=== PATIENT | female | born 1990 | race African-American/Black ===

== ENCOUNTER 2022-06-09 07:27 | Inpatient (IN) ==
[~2022-06-09 07:27] MED LIST: CITRIC ACID/SODIUM CITRATE 15 ML UDC PO SCH; LACTATED RINGER'S 1,000 ML IV SCH; ceFAZolin 3,000 MG in DEXTROSE 5% 50 ML IV SCH
[2022-06-09] MEDS ORDERED: LIDOCAINE 1% LOCAL 20 ML VIAL INFIL PRN (09:29)
[2022-06-09] MEDS ORDERED: OXYTOCIN 30 UNITS/500 ML BAG IV PRN (09:29)
[2022-06-09] MEDS ORDERED: MoRPHine SULFATE PF 1 MG/ML 10 ML AMP/VIAL ONE (09:37)
--- NOTE | 2022-06-09 09:42 | Anesthesiology Consultation ---
Date of Service June 09, 2022 Assessment & Plan (1) Encounter for pre-operative examination: Chart Review Chart Review: Acceptable Risk for Surgery History Surgery Operation Date: 06/09/22 09:20 Proposed Procedures p Section in LD - Tommy Jones MD Height/Weight Height: 5 ft 5 in Weight: 118.934 kg Allergies Allergy/AdvReac Type Severity Reaction Status Date / Time No Known Allergies Allergy Verified 06/06/22 13:33 Medications Home Medications Medication Instructions Recorded Confirmed Last Taken prenat.vits,светлана,zfl-djch-vffay 1 tab PO DAILY 11/12/21 06/06/22 Unknown ferrous sulfate PO 12/30/21 06/06/22 Unknown NPO Last Intake of Fluids Comment: Midnight Last Intake of Solids Comment: Midnight Past Medical History Medical History (Updated 06/09/22 @ 09:45 by Petey Juarez MD) Asthma As child Past Family History Family History Mother Breast cancer Grandfather (Maternal) Diabetes Past Surgical History Surgical History History of arthroscopy of right shoulder S/P appendectomy S/P tonsillectomy and adenoidectomy Status post left foot surgery Social History Smoking Status: Never smoker Hx Alcohol Use: No Physical Exam Vital Signs Last Vital Signs Temp 37.1 C 06/09/22 08:07 Pulse 99 H 06/09/22 07:34 Resp 22 06/09/22 08:07 BP 129/73 06/09/22 07:34
--- NOTE | 2022-06-09 09:51 | History & Physical Report ---
Date of Service June 09, 2022 Assessment & Plan (1) Supervision of normal intrauterine in primigravida: (2) Carrier of group B Streptococcus: (3) Breech presentation: Plan 32-year-old currently at 39 weeks 5 days gestational age presents for scheduled primary Caesarean section secondary to breech presentation. Reactive NST. Vitals within normal limits. consents reviewed and signed. Admission and Anticipated Discharge Date Admission Date: June 09, 2022 History of Present Illness Primary Care Provider: Kailee Berry MD 32-year-old G 0 currently 39 weeks 5 days gestational age presents for primary Caesarean section secondary to breech presentation. 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 GBS positive OB Labs: Blood Type A Positive 11/18/21 Antibody Screen NEGATIVE 11/18/21 Hemoglobin 10.5 g/dl (12.0-16.0) L 03/28/22 Hematocrit 31.9 % (34.1-44.9) L 03/28/22 Mean Corpuscular Volume 88.4 fL (80.0-100.0) 11/18/21 Platelet Count 338 K/uL (130-400) 11/18/21 Rubella IgG Antibody Immune (Immune) 11/18/21 Rapid Plasma Reagin Nonreactive (Nonreactive) 11/18/21 Hepatitis B Surface Antigen. NON-REACTIVE (NON-REACTIVE) 11/18/21 Hepatitis C Antibody (EIA) NON-REACTIVE (NON-REACTIVE) 11/18/21 HIV (1&2) Ag and Ab Confirmation NON-REACTIVE (NON-REACTIVE) 11/18/21 Glucose 1 Hour 50 gm Load 128 mg/dl (70-130) 03/28/22 OB Optional Labs: Chlamydia trachomatis RNA NOT DETECTED (NOT DETECTED) 11/18/21 Neisseria gonorrhoeae RNA NOT DETECTED (NOT DETECTED) 11/18/21 Labs Reviewed: cf neg-smp sma +, fob neg--smp declines cfDNA, quad, msafp --smp Allergies Allergy/AdvReac Type Severity Reaction Status Date / Time No Known Allergies Allergy Verified 06/06/22 13:33 Home Medications Medication Instructions Recorded Confirmed Type prenat.vits,светлана,vrf-agga-qxfrv 1 tab PO DAILY 11/12/21 06/06/22 History ferrous sulfate PO 10/10/22 03/17/23 History Patient History Medical History (Updated 06/09/22 @ 09:50 by Tommy Jones MD) Asthma As child Surgical History History of arthroscopy of right shoulder S/P appendectomy S/P tonsillectomy and adenoidectomy Status post left foot surgery Family History Mother Breast cancer Grandfather (Maternal) Diabetes Social History (Updated 11/12/21 @ 07:42 by Ghada Cordon) Smoking Status: Never smoker Hx Alcohol Use: No Preferred Language: Kazakh Child Custody Evaluator Required: No Beliefs That Will Affect Care: None marital status: marital status details: Spouse: Rk (31) [phone] Current Living Situation: Spouse Current Living Situation Comment: lives with spouse, step daughter, 3 dogs. current occupational status: employed current occupation: [employer]. Other Information That Helps Us Care for You: No Assistive Devices: None Physical Exam Gastrointestinal (Abdomen): Inspection/Auscultation: abdomen normal to inspection Percussion/Palpation: abdomen soft; abdomen nontender, no guarding and abdomen not rigid Genitourinary: OB Exam Abdomen: + breech ( confirmed by ultrasound) OB Exam Monitor Tracing: + external FHT monitor used, + external uterine monitor used, + category I and + normal FHT variability; no early decelerations present, no late decelerations present and no variable decelerations Results & Data Vital Signs (Past 12 Hours) Vital Signs Temp Pulse Resp BP 06/09/22 08:07 37.1 C 22 06/09/22 07:34 99 H 129/73 Code Status & VTE Plan VTE Prophylaxis Plan VTE Prophylaxis will be ordered: No Reason for no VTE drug order: Treatment not indicated Coding Level of Care Code None Diagnoses Supervision of normal intrauterine in primigravida Z34.00 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
[2022-06-09 10:01] LABS: Hematocrit (blood only) 33.6 % (37.0-47.0); Hemoglobin 11.3 g/dl (12.0-16.0); Mean Corpuscular Hemoglobin 29.6 pg (25.0-34.0); Mean Corpuscular Hgb Conc 33.6 g/dL (32.0-36.0); Platelet Count 252 K/uL (130-400); RDW Coefficient of Variation 14.3 % (11.5-14.5); RDW Standard Deviation 45.4 fL (36.4-46.3); Red Blood Count 3.82 M/uL (4.20-5.40); White Blood Count 13.62 K/ul (4.8-10.8)
[2022-06-09] MEDS ORDERED: ONDANSETRON INJ 2 MG/ML 2 ML VIAL IV PRN (10:53)
[2022-06-09] MEDS ORDERED: ePHEDrine sulfate 50 MG/ML AMP IV PRN (10:53)
[2022-06-09] MEDS ORDERED: MoRPHine SULFATE PF 1 MG/ML 10 ML AMP/VIAL INT SPINAL ONE (10:53)
[2022-06-09] MEDS ORDERED: NALBUPHINE HCL INJ 10 MG/ML AMP IV PRN (10:53)
[2022-06-09] MEDS ORDERED: PROMETHAZINE HCL 12.5 MG in SODIUM CHLORIDE 0.9% 50 ML IV PRN (10:53)
[2022-06-09] MEDS ORDERED: NALOXONE HCL 1 MG in SODIUM CHLORIDE 0.9% 1000ML 1,000 ML IV PRN (10:53)
[2022-06-09] MEDS ORDERED: diphenhydrAMINE 50 MG/ML VIAL IV PRN (10:53)
[2022-06-09] MEDS ORDERED: LACTATED RINGER'S 500 ML IV PRN (10:53)
[2022-06-09] MEDS ORDERED: NALOXONE HCL 0.08 MG in SYRINGE 1.8 ML IV PRN (10:53)
[2022-06-09] MEDS ORDERED: MoRPHine SULFATE 2 MG/ML CARP IV PRN (10:53)
[2022-06-09] MEDS ORDERED: NALOXONE HCL 0.4 MG/1 ML VIAL/CARP IV PRN (10:53)
[2022-06-09] MEDS ORDERED: SODIUM CHLORIDE 0.9% 1000ML 1,000 ML IV SCH (11:00)
[2022-06-09] MEDS ORDERED: NO NARCOTICS OR SEDATIVES SCH (11:00)
[2022-06-09] MEDS ORDERED: PHENYLEPHRINE 100MCG/ML 5ML SYR ONE (11:01)
[2022-06-09] MEDS ORDERED: METOCLOPRAMIDE HCL INJ 5 MG/ML 2 ML VIAL ONE (11:01)
[2022-06-09] MEDS ORDERED: ONDANSETRON INJ 2 MG/ML 2 ML VIAL ONE (11:01)
[2022-06-09] MEDS ORDERED: ePHEDrine sulfate 50 MG/ML SYR ONE (11:01)
[2022-06-09] MEDS ORDERED: OXYTOCIN 10 UNITS/ML 10ML VIAL ONE (11:01)
--- NOTE | 2022-06-09 12:02 | Post Operative Brief Note ---
PG Immediate Post Op with CF Date of Surgery June 09, 2022 Pre & Post Diagnosis Operation Date: 06/09/22 09:20 term . Breech presentation I identified the patient and participated in the time-out.: Yes Procedure Operation Date: 06/09/22 09:20 primary low transverse Surgeon Tommy Jones MD [place] [facility] Nursing Estimated Blood Loss 600 Findings Consistent with Post-Op Diagnosis
--- NOTE | 2022-06-09 12:46 | Operative Report (OR) ---
DATE OF SERVICE: 06/09/2022. PROCEDURE: Primary low transverse section. SURGEON: Tommy Jones MD. MULE DRIVER: Nursing staff. PREOPERATIVE DIAGNOSES: 1. Term at 39+ weeks gestational age. 2. Breech presentation. POSTOPERATIVE DIAGNOSES: 1. Term at 39+ weeks gestational age. 2. Breech presentation. 3. Status post procedure. ESTIMATED BLOOD LOSS: 600 mL. DRAINS: Cortez catheter. FLUIDS: Continuous lactated Ringer. URINE OUTPUT: Per Cortez catheter. COMPLICATIONS: None. FINDINGS: Viable female with weight pending and Apgars of 9 and 10 at 1 and 5 minutes respect ively. DESCRIPTION OF PROCEDURE: The patient was taken to the operating room after consents were ensured. Upon presentation, she was properly identified. Spinal anesthesia was obtained without difficulty. The patient was then prepped and draped in normal sterile fashion. Preprocedural timeout was perform ed, after which a Pfannenstiel incision was made with a knife. This was carried down to underlying f ascia with the Bovie. The fascia was then nicked at the midline and extended laterally in each direc tion with pickups and Burton scissors. Superior aspect of the fascia was grasped with Kochers x2, elev ated off the underlying rectus muscles using blunt dissection. The inferior aspect of the fascia was grasped with Kochers x2, elevated off the underlying rectus muscles using blunt dissection. Midline was then entered bluntly and placed on stretch to provide adequate room for delivery. A bladder donavon de was inserted and a bladder flap was created. A low transverse uterine incision was then made with a knife. The uterine cavity was then entered bluntly. It was noted to have clear fluid. The uteru s was placed on stretch to provide adequate room for delivery and the was noted to be in samina k breech presentation. The bottom was delivered through the hysterotomy to the level of the knees an d then each leg was internally rotated and brought through the hysterotomy, then this was continued i nto the level of the shoulder, but until just below the shoulder and each arm was delivered with inte rnal rotation for delivery. Head of the was then delivered without difficulty and was noted to be vigorous upon delivery and a 30+ seconds delayed cord clamping was initiated. Cord was then do uble clamped and cut. was taken to the waiting nursery staff. Cord blood was obtained. Att ention was then turned to delivery of the placenta, which was delivered intact, 3-vessel cord, gentle cord traction and uterine massage. Uterus was exteriorized. Several passes were made to remove any remaining membranes with a dry lap. The uterus was wrapped in a wet lap and the hysterotomy was yehuda pproximated with 0 Vicryl in a continuous running locked stitch. A second imbricating layer of 0 Jb ryl was performed and the hysterotomy was noted to be hemostatic. Posterior cul-de-sac was cleaned o f clots and debris. The uterus was returned to maternal abdomen and the hysterotomy was reinspected until noted to be hemostatic. Right and left pericolic gutters were cleaned of clots and debris. Th e space of Retzius, fascial and muscle layers were all inspected and noted to be hemostatic and was c leared of any clots and debris. The fascia was then reapproximated with 0 Vicryl in continuous runni ng stitch. The subcutaneous layers were reapproximated with 2-0 plain with continuous running stitch . The fascial layers were reapproximated with 3-0 Vicryl on a Brian needle in a subcuticular stitch, Dermabond placed on top. Needle, sponge, and instrument counts were correct at the completion of th e case. Both mother and stable in the immediate post-delivery period. Job ID: [id number]
[2022-06-09] MEDS ORDERED: BENZOCAINE 20% AER SPR 82.5 GM CAN EXT PRN (13:10)
[2022-06-09] MEDS ORDERED: SENNA 8.6 MG TAB PO PRN (13:10)
[2022-06-09] MEDS ORDERED: MAGNESIUM HYDROXIDE SUSP 30 ML UDC PO PRN (13:10)
[2022-06-09] MEDS ORDERED: DIPHTHERIA/TETANUS/PERTUSSIS 0.5mL SYR/VIAL (Age 7+yrs) IM ONE (13:10)
[2022-06-09] MEDS ORDERED: HYDROCORTISONE ACETATE 25 MG SUPP PR PRN (13:10)
[2022-06-09] MEDS ORDERED: OXYTOCIN 20 UNITS in LACTATED RINGER'S 1,000 ML IV SCH (13:15)
--- NOTE | 2022-06-09 14:30 | Anesthesiology Progress Note ---
Date of Service June 09, 2022 Anesthesia Post Procedure Vital Signs Vital Signs: Temp Pulse Resp BP Pulse Ox O2 Del Method 06/09/22 12:40 36.6 C 20 06/09/22 11:40 36.6 C 18 Room Air 06/09/22 08:07 37.1 C 22 06/09/22 14:05 99 06/09/22 14:05 83 06/09/22 14:01 86 06/09/22 14:01 97/53 L 06/09/22 14:00 99 06/09/22 14:00 87 06/09/22 13:55 99 06/09/22 13:55 89 06/09/22 13:50 98 06/09/22 13:50 92 H 06/09/22 13:51 89 06/09/22 13:51 100/57 L 06/09/22 13:45 98 06/09/22 13:45 94 H 06/09/22 13:40 99 06/09/22 13:40 87 06/09/22 13:41 95 H 06/09/22 13:41 98/53 L 06/09/22 13:35 98 06/09/22 13:35 98 H 06/09/22 13:31 109 H 06/09/22 13:31 96/54 L 06/09/22 13:30 97 06/09/22 13:30 94 H 06/09/22 13:25 98 06/09/22 13:25 108 H 06/09/22 13:21 93 H 06/09/22 13:21 99/52 L 06/09/22 13:20 99 06/09/22 13:20 97 H 06/09/22 13:15 98 06/09/22 13:15 108 H 06/09/22 13:10 98 06/09/22 13:10 109 H 06/09/22 13:11 96 H 06/09/22 13:11 93/50 L 06/09/22 13:05 99 06/09/22 13:05 96 H 06/09/22 13:05 96/51 L 06/09/22 13:03 115 H 06/09/22 13:03 89/53 L 06/09/22 13:01 120 H 06/09/22 13:01 86/52 L 06/09/22 13:00 99 06/09/22 13:00 122 H 06/09/22 12:55 98 06/09/22 12:55 104 H 06/09/22 12:51 97 H 06/09/22 12:51 98/53 L 06/09/22 12:50 98 06/09/22 12:50 96 H 06/09/22 12:45 98 06/09/22 12:45 109 H 06/09/22 12:40 98 06/09/22 12:40 107 H 06/09/22 12:41 203 H 06/09/22 12:41 90/51 L 06/09/22 12:35 98 06/09/22 12:35 109 H 06/09/22 12:31 112 H 06/09/22 12:31 116/55 L 06/09/22 12:30 98 06/09/22 12:30 97 H 06/09/22 12:25 98 06/09/22 12:25 113 H 06/09/22 12:20 99 06/09/22 12:20 115 H 06/09/22 12:15 98 06/09/22 12:15 119 H 06/09/22 12:10 99 06/09/22 12:10 115 H 06/09/22 12:11 120/56 L 06/09/22 12:05 100 06/09/22 12:05 105 H 06/09/22 12:01 100 H 06/09/22 12:01 102/56 L 06/09/22 12:00 99 06/09/22 12:00 94 H 06/09/22 11:55 99 06/09/22 11:55 90 06/09/22 11:51 104 H 06/09/22 11:51 100/58 L 06/09/22 11:50 99 06/09/22 11:50 89 06/09/22 11:45 99 06/09/22 11:45 90 06/09/22 11:40 99 06/09/22 11:40 95 H 06/09/22 11:41 85 06/09/22 11:41 115/53 L 06/09/22 07:34 99 H 129/73 Transfer of Care Handoff Completed per policy Notes Mental Status: alert / awake / arousable Patient Amnestic to Procedure: Yes Nausea / Vomiting: adequately controlled Pain: adequately controlled Airway Patency, RR, SpO2: stable & adequate BP & HR: stable & adequate Hydration State: stable & adequate Neuraxial Anesthesia: was administered and sensory block is resolving Anesthetic Complications: no major complications apparent
[2022-06-09] MEDS: KETOROLAC 30 MG/ML VIAL IV PRN ×2 (15:10→21:03)
[2022-06-09] MEDS: SIMETHICONE 80 MG CHEW PO SCH ×2 (18:00→21:02)
[2022-06-09] MEDS: DOCUSATE SODIUM 100 MG CAP PO SCH (21:02)
[2022-06-09] MEDS: LACTATED RINGER'S 1,000 ML IV SCH (22:36)
[2022-06-10] MEDS ORDERED: LACTATED RINGER'S 1,000 ML IV ONE (01:17)
[2022-06-10] MEDS: KETOROLAC 30 MG/ML VIAL IV PRN (03:38)
[2022-06-10] MEDS ORDERED: DC INTRASPINAL MORPHINE SCH (04:53)
[2022-06-10] MEDS ORDERED: ONDANSETRON INJ 2 MG/ML 2 ML VIAL IV PRN (04:54)
[2022-06-10] MEDS ORDERED: KETOROLAC 30 MG/ML VIAL IV PRN (04:54)
[2022-06-10] MEDS ORDERED: diphenhydrAMINE Capsule 25 MG CAP PO PRN (04:54)
[2022-06-10] MEDS ORDERED: PROMETHAZINE HCL 25 MG in SODIUM CHLORIDE 0.9% 50 ML IV PRN (04:54)
[2022-06-10] MEDS ORDERED: diphenhydrAMINE 50 MG/ML VIAL IV PRN (04:54)
--- NOTE | 2022-06-10 06:58 | Obstetrical Progress Note ---
Date of Service <Deepika YatesDeanna Rogel DO - Last Filed: 06/10/22 07:51> June 10, 2022 Assessment & Plan <Deepika Dominic Rogel DO - Last Filed: 06/10/22 07:51> (1) Status post section: Cortez is out, had not voided yet, continue OOB and ambulation and then progress diet as tolerated <Tommy Jones MD - Last Filed: 06/10/22 08:21> (1) Status post section: Subjective <Deepika S. DO Juan F - Last Filed: 06/10/22 07:51> Nery is a 32 y/o female who is POD #1 following delivery at 39 5/7 weeks. She reports feeling well overall this morning. MIld abdominal cramping, pain well managed on analgesics. Cortez is out, has not voided yet. Tolerating meals overnight and able to ambulate some. Is passing gas and had bowel movement. Has some persistent lochia with some improvement this morning. Currently breast feeding. Review of Systems Denies fever, chills, sweats Denies shortness of breath, difficulty breathing, chest pain, palpitations, chest pressure. Denies breast pain. Denies dysuria. Denies headache or changes in vision. Physical Exam <Deepika SDeanna Rogel DO - Last Filed: 06/10/22 07:51> General: Alert, oriented. No acute distress. Cardiac: Regular rate and rhythm, no murmurs/rubs/gallops. Respiratory: Clear to auscultation bilaterally a/p, no wheezes/rales/rhonchi. No increased work of breathing. Symmetrical chest rise. No respiratory distress. Abdomen: Soft, nontender, nondistended. Uterus: Uterine fundus firm, palpable 2 cm below umbilicus. Surgical scar clean and healing well. Lower Extremities: No lower extremity edema or swelling. Results & Data <Deepika Rogel DO - Last Filed: 06/10/22 07:51> Vital Signs (Past 12 Hours) Vital Signs Temp Pulse Resp BP Pulse Ox O2 Del Method 06/10/22 04:00 20 95 06/10/22 03:34 18 96 06/10/22 03:34 37.1 C 93 H 20 102/64 96 Room Air 06/10/22 02:11 18 95 06/10/22 01:15 18 95 06/10/22 00:05 20 96 06/10/22 00:05 36.9 C 96 H 20 96/59 L 96 Room Air 06/09/22 23:03 18 96 06/09/22 22:00 20 96 06/09/22 21:00 18 99 06/09/22 20:00 20 96 06/09/22 19:35 20 98 06/09/22 19:35 Room Air 06/09/22 19:35 36.6 C 96 H 20 96/63 L 98 Room Air <Tomym Jones MD - Last Filed: 06/10/22 08:21> Co-Signing Physician Notes patient seen and evaluated with resident and agree with the above findings and plan. Routine care. Resident Activity Tracking <Deepika Rogel DO - Last Filed: 06/10/22 07:51> Resident Involvement: Resident Care Provided Care Provided: OB Delivery (post )
[2022-06-10] MEDS: LACTATED RINGER'S 1,000 ML IV SCH (07:23)
[2022-06-10 08:04] LABS: Basophils # (auto) 0.04 K/uL (0-0.2); Basophils % (auto) 0.3 %; Eosinophils # (auto) 0.11 K/uL (0-0.50); Eosinophils % (auto) 0.7 %; Hematocrit (blood only) 25.6 % (37.0-47.0); Hemoglobin 8.7 g/dl (12.0-16.0); Immature Granulocytes # (auto) 0.12 K/uL (0.01-0.20); Immature Granulocytes % (auto) 0.8 %; Lymphocytes # (auto) 2.19 K/uL (1.2-3.4); Lymphocytes % (auto) 14.7 %; Mean Corpuscular Hemoglobin 30.3 pg (25.0-34.0); Mean Corpuscular Volume 89.2 fL (80.0-100.0); Mean Platelet Volume 9.6 fL (9.4-12.4); Monocytes # (auto) 1.04 K/uL (0.11-0.59); Neutrophils # (auto) 11.38 K/uL (1.40-6.50); Neutrophils % (auto) 76.5 %; Platelet Count 203 K/uL (130-400); RDW Coefficient of Variation 14.3 % (11.5-14.5); RDW Standard Deviation 46.4 fL (36.4-46.3); Red Blood Count 2.87 M/uL (4.20-5.40); White Blood Count 14.88 K/ul (4.8-10.8)
[2022-06-10] MEDS: PRENATAL VITAMIN 1 TAB PO SCH (08:18)
[2022-06-10] MEDS: SIMETHICONE 80 MG CHEW PO SCH ×4 (08:19→20:58)
[2022-06-10] MEDS: FERROUS SULFATE 325 MG TAB PO SCH (08:19)
[2022-06-10] MEDS: DOCUSATE SODIUM 100 MG CAP PO SCH ×2 (08:19→20:59)
[2022-06-10] MEDS: IBUPROFEN 600 MG TAB PO PRN ×3 (08:19→18:33)
[2022-06-10] MEDS: oxyCODONE/ACETAMINOPHEN 5mg/325mg TAB PO PRN ×3 (08:21→18:33)
[2022-06-10] MEDS ORDERED: bisacodyL 5 MG TABEC PO SCH (20:00)
[2022-06-11] MEDS: IBUPROFEN 600 MG TAB PO PRN ×4 (00:10→17:17)
[2022-06-11] MEDS: oxyCODONE/ACETAMINOPHEN 5mg/325mg TAB PO PRN ×4 (00:11→17:16)
--- NOTE | 2022-06-11 06:06 | Obstetrical Progress Note ---
Date of Service <Deepika Rogel DO - Last Filed: 06/11/22 07:09> June 11, 2022 Assessment & Plan <Deepika Rogel DO - Last Filed: 06/11/22 07:09> (1) Status post section: continue OOB, ambulation, diet as tolerated - 6 week post f/u - Discharge instructions reviewed <Nena Liu MD, FACOG - Last Filed: 06/11/22 08:02> (1) Status post section: Subjective <Deepika Rogel - Last Filed: 06/11/22 07:09> Nery is a 32 y/o female who is POD #2 following delivery at 39 5/7 weeks. She reports feeling well overall this morning. Moderate abdominal cramping, pain well managed on analgesics. Voiding. Passing gas, no bowel movement. Tolerating meals overnight and able to ambulate some. Has some persis tent lochia with some improvement this morning. Currently breast feeding. Review of Systems Denies fever, chills, sweats Denies shortness of breath, difficulty breathing, chest pain, palpitations, chest pressure. Denies breast pain. Denies dysuria. Denies headache or changes in vision. Physical Exam <Deepika Rogel DO - Last Filed: 06/11/22 07:09> General: Alert, oriented. No acute distress. Cardiac: Regular rate and rhythm, no murmurs/rubs/gallops. Respiratory: Clear to auscultation bilaterally a/p, no wheezes/rales/rhonchi. No increased work of breathing. Symmetrical chest rise. No respiratory distress. Abdomen: Soft, nontender, nondistended. Uterus: Uterine fundus firm, palpable 2 cm below umbilicus. Surgical scar clean and healing well. Lower Extremities: No lower extremity edema or swelling. Results & Data <Deepika Rogel - Last Filed: 06/11/22 07:09> Vital Signs (Past 12 Hours) Vital Signs Temp Pulse Resp BP Pulse Ox O2 Del Method 06/10/22 23:30 36.7 C 82 18 99/63 L 06/10/22 20:50 36.6 C 92 H 18 100/65 99 Room Air <Nena Liu MD, FACOG - Last Filed: 06/11/22 08:02> Co-Signing Physician Notes Resident Physician Supervision Note: I was present with Dr. Rogel during the history and exam. I discussed the case with the resident and agree with the findings and plan as documented in the note. Any exceptions or clarifications are listed here: stable doing well, eating, voiding, ambulating, using pain meds sucessfully for pain control. abd soft ff 2 down nt, ext nt calves. incision c/d/i. does not plan dc, will cont with current care. rh pos, ri, gbs neg Documented By: Nena Liu MD, FACOG Resident Activity Tracking <Deepika Rogel, - Last Filed: 06/11/22 07:09> Resident Involvement: Resident Care Provided Care Provided: OB Delivery (post )
[2022-06-11 07:09] LABS: Hematocrit (blood only) 26.4 % (37.0-47.0); Hemoglobin 8.6 g/dl (12.0-16.0)
[2022-06-11] MEDS: PRENATAL VITAMIN 1 TAB PO SCH (07:48)
[2022-06-11] MEDS: SIMETHICONE 80 MG CHEW PO SCH ×4 (07:48→20:24)
[2022-06-11] MEDS: FERROUS SULFATE 325 MG TAB PO SCH (07:48)
[2022-06-11] MEDS: DOCUSATE SODIUM 100 MG CAP PO SCH ×2 (07:48→20:24)
[2022-06-11] MEDS ORDERED: bisacodyL 10 MG SUPP PR PRN (13:10)
[2022-06-12] MEDS: oxyCODONE/ACETAMINOPHEN 5mg/325mg TAB PO PRN ×2 (00:15→05:57)
[2022-06-12] MEDS: IBUPROFEN 600 MG TAB PO PRN ×2 (00:15→05:58)
--- NOTE | 2022-06-12 05:46 | Obstetrical Progress Note ---
Date of Service <Deepika Rogel - Last Filed: 06/12/22 06:37> June 12, 2022 Assessment & Plan <Deepika Rogel - Last Filed: 06/12/22 06:37> (1) Status post section: continue OOB, ambulation, diet as tolerated - 6 week post f/u - Discharge instructions reviewed <Sonia Paul MD, FACOG - Last Filed: 06/12/22 07:07> (1) Status post section: Subjective <Deepika Rogel - Last Filed: 06/12/22 06:37> Nery is a 32 y/o female who is POD #3 following delivery at 39 5/7 weeks. She reports feeling well overall this morning. Moderate abdominal cramping, pain well managed on analgesics. Voiding. Passing gas and had a bowel movement. Tolerating full diet and able to ambulate some. Has some persistent lochia with some improvement this morning. Currently breast feeding. Review of Systems Denies fever, chills, sweats Denies shortness of breath, difficulty breathing, chest pain, palpitations, chest pressure. Denies breast pain. Denies dysuria. Denies headache or changes in vision. Physical Exam <Deepika Rogel - Last Filed: 06/12/22 06:37> General: Alert, oriented. No acute distress. Cardiac: Regular rate and rhythm, no murmurs/rubs/gallops. Respiratory: Clear to auscultation bilaterally a/p, no wheezes/rales/rhonchi. No increased work of breathing. Symmetrical chest rise. No respiratory distress. Abdomen: Soft, nontender, nondistended. Uterus: Uterine fundus firm, palpable 2 cm below umbilicus. Surgical scar clean and healing well. Lower Extremities: No lower extremity edema or swelling. Results & Data <Deepika YatesDeanna Juan FDO - Last Filed: 06/12/22 06:37> Vital Signs (Past 12 Hours) Vital Signs Temp Pulse Resp BP Pulse Ox O2 Del Method 06/11/22 21:05 36.8 C 93 H 18 96/64 L 98 Room Air <Sonia Paul MD, FACOG - Last Filed: 06/12/22 07:07> Co-Signing Physician Notes Resident Physician Supervision Note: I was present with Dr. Dr. Rogel during the history and exam. I discussed the case with the resident and agree with the findings and plan as documented in the note. Any exceptions or clarifications are listed here: [None] Documented By: Sonia Paul MD, FACOG Resident Activity Tracking <Deepika Rogel, DO - Last Filed: 06/12/22 06:37> Resident Involvement: Resident Care Provided Care Provided: OB Delivery (post )
[2022-06-12] MEDS: FERROUS SULFATE 325 MG TAB PO SCH (08:06)
[2022-06-12] MEDS: SIMETHICONE 80 MG CHEW PO SCH (08:06)
[2022-06-12] MEDS: DOCUSATE SODIUM 100 MG CAP PO SCH (08:07)
[2022-06-12] MEDS: PRENATAL VITAMIN 1 TAB PO SCH (08:07)
== END 2022-06-12 10:15 | disposition home or self-care (01) | DRG 788 ==
LOC: 4S1 07:27 → EDSTATUS 09:20 → 4E2 15:02